=== PATIENT | female | born 1935 | race Caucasian/White ===

== ENCOUNTER 2017-07-16 19:27 | Inpatient (IN) | payer OTHER, SELFPAY ==
[~2017-07-16] VITALS: Ht 157.5 cm; Wt 66.7 kg
--- NOTE | ~2017-07-16 | EKG ---
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
[~2017-07-16 19:27] MED LIST: ADVAIR HFA115 MCG/21 INH; AMARYL2 MG PO; AMBIEN 10 MG TA10 MG PO; AMBIEN 5 MG TABL5 M1 PO; AMLODIPINE BESY10 MG PO; AMOXICILLIN 50500 M1 PO; ASPIRIN325 PO; ASPIRIN81 M2 PO; ATORVASTATIN CA40 MG PO; CARVEDILOL12.5 MG PO; EYE OMEGA ADVA1 EACH PO; FIBERCON625 M1 PO; FLAGYL500 MG PO; GLUCOPHAGE500 MG PO; HYDROCODON-ACE1 EACH PO; IBUPROFEN 800800 M1 PO; IRON325 PO; KLOR-CON 1010 MEQ PO; LASIX 20 MG TAB20 MG PO; LEVAQUIN 500 M500 M2 PO; LEVEMIR SQ; LIPITOR 20 MG T20 M1 PO; LISINOPRIL-HCT1 EAC1 PO; LISINOPRIL10 MG PO; LISINOPRIL20 MG PO; MAG-AL LIQUID30 ML PO; MILK OF MA2400 MG/10 PO; NEXIUM40 MG PO; NITROGLYCERIN0.4 MG SUBLING; OMEPRAZOLE40 MG PO; ONDANSETRON HCL4 M2 PO; PLAVIX 75 MG TA75 M1 PO; PREDNISONE 5 MG5 MG PO; PRILOSEC40 MG PO; PRINIVIL5 MG PO; PROMETHAZINE/C118 ML PO; REMERON15 MG PO; TOPROL XL25 MG PO; TRAMADOL 50 MG50 MG PO; TYLENOL325 MG PO; UNKNOWN ANTIBIOTIC; WOMEN'S GENTLE L5 MG PO; ZOCOR40 MG PO
[2017-07-16 19:28] VITALS: BP 128/53
[2017-07-16 19:50] LABS: ABSOLUTE BASOPHILS 0.1 thou/uL (0.0-0.2); ABSOLUTE EOSINOPHILS 0.6 thou/uL (0.0-0.7); ABSOLUTE LYMPHOCYTES 2.3 thou/uL (0.8-5.3); ABSOLUTE MONOCYTES 0.7 thou/uL (0.0-1.2); BASOPHILS 0.6 %; EOSINOPHILS 6.5 %; HEMATOCRIT 33.7 % (37.0-47.0); HEMOGLOBIN 11.5 gm/dL (12.0-15.0); LYMPHOCYTES 26.1 %; MCV 96.9 fL (80.0-100.0); MONOCYTES 8.6 %; MPV 8.7 fl. (7.2-11.1); NUCLEATED RBCS 0 /100WBC; PLATELET COUNT* 186 thou/uL (150-400); POLYS 58.2 %; RBC 3.48 mil/uL (4.20-5.00); RDW-CV 14.7 % (10.5-14.5); WBC 8.7 thou/uL (4.0-11.0)
[2017-07-16 20:01] LABS: ANION GAP 9 mmol/L (7-16); BUN 26 mg/dL (7-18); CALCIUM 8.6 mg/dL (8.5-10.1); CHLORIDE 106 mmol/L (98-107); CO2 25 mmol/L (21-32); CREATININE 1.5 mg/dL (0.6-1.3); GLUCOSE 205 mg/dL (70-99); POTASSIUM 3.5 mmol/L (3.5-5.1); PROTIME 10.1 Seconds (9.20-11.50); SODIUM 140 mmol/L (136-145)
[2017-07-16 20:12] LABS: ALBUMIN 3.2 g/dL (3.4-5.0); ALKALINE PHOSPHATASE 95 U/L (46-116); NT-PRO BRAIN NAT PEPTIDE 886 pg/mL (<300); SGOT 13 U/L (15-37); SGPT 14 U/L (30-65); TOTAL BILIRUBIN 0.4 mg/dL (<0.1-1.0); TOTAL PROTEIN 6.2 g/dL (6.4-8.2); TROPONIN-I LEVEL <0.06 ng/mL (<0.06)
[2017-07-16] MEDS ORDERED: AREDS 2 PO (20:24)
[2017-07-16] MEDS ORDERED: BIO CLEANSE PO (20:24)
[2017-07-16] MEDS ORDERED: TRAZODONE HCL50 MG PO (20:25)
[2017-07-16] MEDS ORDERED: TRAZODONE HCL50 MG (20:25)
[2017-07-16 21:43] LABS: URINE BILIRUBIN NEGATIVE (Negative); URINE BLOOD NEGATIVE (Negative); URINE CLARITY CLEAR; URINE COLOR YELLOW; URINE GLUCOSE-RANDOM NEGATIVE (Negative); URINE KETONES NEGATIVE (Negative); URINE LEUKOCYTES-REFLEX TRACE (Negative); URINE NITRITE-REFLEX NEGATIVE (Negative); URINE PROTEIN TRACE (Negative); URINE SPECIFIC GRAVITY 1.015 (1.005-1.030); URINE UROBILINOGEN 0.2 E.U./dl (0.2-1.0)
[2017-07-16 21:51] LABS: SQUAMOUS >10 Many /LPF (0-3); URINE WBC-REFLEX 0-5 Rare /HPF (0-5)
[2017-07-16 21:52] LABS: BACTERIA-REFLEX None Seen /HPF (None Seen); CASTS None Seen /LPF (None Seen); CRYSTALS None Seen /LPF (None Seen); URINE RBC None Seen /HPF (0-2)
[2017-07-16 22:40] VITALS: BP 150/62
[2017-07-16 22:57] VITALS: BP 178/62
[2017-07-17 04:00] VITALS: BP 179/69
[2017-07-17 05:09] LABS: HEMATOCRIT 33.7 % (37.0-47.0); HEMOGLOBIN 11.3 gm/dL (12.0-15.0); MCH 32.9 pg (26.0-34.0); MCHC 33.7 g/dL (28.0-37.0); MCV 97.8 fL (80.0-100.0); RBC 3.44 mil/uL (4.20-5.00); RDW-CV 14.7 % (10.5-14.5); WBC 7.2 thou/uL (4.0-11.0)
[2017-07-17 05:38] LABS: CALCIUM 8.4 mg/dL (8.5-10.1); CREATININE 1.4 mg/dL (0.6-1.3); POTASSIUM 3.8 mmol/L (3.5-5.1); TOTAL BILIRUBIN 0.5 mg/dL (<0.1-1.0); TOTAL PROTEIN 5.7 g/dL (6.4-8.2)
[2017-07-17 08:02] LABS: CHOLESTEROL 149 mg/dL (<200); HDL CHOLESTEROL 36 mg/dL (>40); LDL CHOLESTEROL 76 mg/dL (<100); TC:HDL 4.1 Ratio (Not establshd); TRIGLYCERIDE 189 mg/dL (<150); VLDL 38 mg/dL (<40)
[2017-07-17 08:03] LABS: SERUM ASSESSMENT Clear
[2017-07-17 08:22] VITALS: BP 175/76
[2017-07-17 11:58] VITALS: BP 184/69
--- NOTE | 2017-07-17 16:11 | 2DMMODE ---
[place] [address] 2 D/M-MODE ECHOCARDIOGRAM Name: ADELFO LITTLE Room: [address] IN [facility]#: [id number] Admission: 07/16/17 Attend Phys: Napoleon Youssef Discharge: Date of : 33 Date of Service: 07/17/17 1611 Report #: [id number] THIS REPORT FOR: //name// APPROVED REPORT Study performed: 07/17/2017 11:29:17 EXAM: Comprehensive 2D, Doppler, and color-flow Echocardiogram Patient Location: In-Patient Room #: 202 Status: routine BSA: 1.60 HR: 72 bpm BP: 175/76 mmHg Rhythm: NSR Other Information Study Quality: Good Indications Hypotension Near syncope 2D Dimensions LVEF(%): 47.38 (>50%) IVSd: 16.80 (7-11mm) LVOT Diam: 19.44 (18-24mm) LVDd: 41.79 mm PWd: 12.65 (7-11mm) Ascending Ao: 29.22 (22-36mm) LVDs: 31.97 (25-40mm) Aortic Root: 30.71 mm Laboy's LVEF: 47.38 % Volumes Left Atrial Volume (Systole) LA ESV Index: 45.30 mL/m2 Aortic Valve AoV Peak Vignesh.: 1.94 m/s AO Peak Gr.: 15.11 mmHg LVOT Max P.52 mmHg AO Mean Gr.: 8.44 mmHg LVOT Mean P.25 mmHg LVOT Max V: 0.79 m/s AO V2 VTI: 43.57 cm LVOT Mean V: 0.51 m/s BENNETT (VTI): 1.17 cm2 LVOT V1 VTI: 17.19 [place] [address] 2 D/M-MODE ECHOCARDIOGRAM Name: ADELFO LITTLE Room: [address] IN .R.#: [id number] Admission: 07/16/17 Attend Phys: Napoleon Youssef Discharge: Date of : 33 Date of Service: 07/17/17 1611 Report #: [id number] Mean Gr.: 6.45 mmHg E/A Ratio: 1.05 MV Decel. Time: 248.57 ms MV E Max Vignesh.: 1.67 m/s MV PHT: 72.08 ms MVA (PHT): 3.05 cm2 TDI E/Lateral E': 55.67 E/Medial E': 41.75 Medial E' Vignesh.: 0.04 m/s Lateral E' Vginesh.: 0.03 m/s Pulmonary Valve PV Peak Vignesh.: 0.94 m/s PV Peak Gr.: 3.52 mmHg Tricuspid Valve TR Peak Gr.: 31.61 mmHg RVSP: 36.00 mmHg Left Ventricle The left ventricle is normal size. There is mild global hypokinesis. Mild concentric left ventricular hypertrophy. Left ventricular ejection fraction is mildly decreased. LVEF is 45-50%. Transmitral Doppler flow pattern suggests impaired LV relaxation. Right Ventricle The right ventricle is normal size. The right ventricular systolic function is normal. Atria Left atrium is moderately dilated. The right atrium size is normal. Aortic Valve Moderate aortic valve sclerosis. Bioprosthetic aortic valve is present. No aortic regurgitation is present. Moderate aortic stenosis. Mitral Valve Moderate mitral annular calcification. Mild mitral regurgitation. No evidence of mitral valve stenosis. Tricuspid Valve The tricuspid valve is normal in structure. Mild tricuspid regurgitation. The RVSP is 35-40 mmHg. Pulmonic Valve The pulmonary valve is normal in structure. [place] [address] 2 D/M-MODE ECHOCARDIOGRAM Name: EMMETT LITTLERADHA Garcia Room: [address] IN ..#: [id number] Admission: 07/16/17 Attend Phys: aNpoleon Youssef Discharge: Date of : 33 Date of Service: 07/17/17 1611 Report #: [id number] valvular regurgitation. Great Vessels The aortic root is normal in size. IVC is normal in size and collapses with >50% inspiration Pericardium There is no pericardial effusion. <Conclusion> The left ventricle is normal size. Mild concentric left ventricular hypertrophy. Left ventricular ejection fraction is mildly decreased. LVEF is 45-50%. There is mild global hypokinesis. Moderate aortic valve sclerosis. Moderate aortic stenosis. Moderate mitral annular calcification. Mild mitral regurgitation. Mild tricuspid regurgitation. The RVSP is 35-40 mmHg. <ELECTRONICALLY SIGNED> By: Evan Guzman MD, FACC 07/17/17 161 161 10 Evan Guzman MD, FACC /INF
[2017-07-17 16:33] VITALS: BP 181/73
--- NOTE | 2017-07-17 16:35 | EKG ---
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: : 1935 Requested By: Tiffanie Perea Order Number: [id number] MD: Evan Guzman Measurements Intervals [place] Rate: 76 P: 4 [place]: 166 QRS: 1 QRSD: 155 T: 172 QT: 491 QTc: 553 Interpretive Statements Sinus rhythm Left bundle branch block Compared to ECG 03/26/2017 13:07:21 Ventricular premature complex(es) no longer present Electronically Signed On 07-17-2017 16:35:20 ADMINISTRATIVE FELLOW by Evan Guzman [email or web address] <ELECTRONICALLY SIGNED> By: Evan Guzman MD, [facility] 07/17/17 1635 51 51 Evan Guzman MD, [facility] /EPI
[2017-07-17 20:00] VITALS: BP 167/65
[2017-07-18] VITALS: BP 155/54
[2017-07-18 04:00] VITALS: BP 166/66
[2017-07-18 05:17] LABS: HEMATOCRIT 30.9 % (37.0-47.0); HEMOGLOBIN 10.6 gm/dL (12.0-15.0); MCH 33.2 pg (26.0-34.0); MCHC 34.3 g/dL (28.0-37.0); MCV 96.8 fL (80.0-100.0); MPV 9.5 fl. (7.2-11.1); RBC 3.19 mil/uL (4.20-5.00); RDW-CV 14.4 % (10.5-14.5); WBC 7.4 thou/uL (4.0-11.0)
[2017-07-18 05:47] LABS: ALBUMIN 2.6 g/dL (3.4-5.0); CALCIUM 8.3 mg/dL (8.5-10.1); MAGNESIUM 1.8 mg/dL (1.8-2.4); POTASSIUM 3.8 mmol/L (3.5-5.1); TOTAL BILIRUBIN 0.2 mg/dL (<0.1-1.0); TOTAL PROTEIN 5.2 g/dL (6.4-8.2)
[2017-07-18 07:44] VITALS: BP 181/70
[2017-07-18 16:07] VITALS: BP 188/84
[2017-07-18 19:55] VITALS: BP 212/85
[2017-07-19 00:07] VITALS: BP 178/69
[2017-07-19 04:00] VITALS: BP 158/49
[2017-07-19 05:07] LABS: HEMATOCRIT 32.1 % (37.0-47.0); MCH 33.1 pg (26.0-34.0); MCHC 34.2 g/dL (28.0-37.0); MCV 96.9 fL (80.0-100.0); MPV 9.3 fl. (7.2-11.1); RBC 3.31 mil/uL (4.20-5.00); RDW-CV 14.6 % (10.5-14.5); WBC 9.1 thou/uL (4.0-11.0)
[2017-07-19 05:23] LABS: CREATININE 0.9 mg/dL (0.6-1.3); POTASSIUM 3.3 mmol/L (3.5-5.1)
[2017-07-19 07:51] VITALS: BP 166/75
[2017-07-19 11:00] VITALS: BP 166/75
[2017-07-19] MEDS ORDERED: LISINOPRIL10 MG PO (11:25)
[2017-07-19 12:00] VITALS: BP 155/73
[2017-07-19 16:09] VITALS: BP 162/98
--- NOTE | 2017-07-21 15:56 | EEG ---
[address] [address] EEG STUDY REPORT Name: ADELFO LITTLE Radha Room: [address] IN M.R.#: [id number] Admission: 07/16/17 Attend Phys: Jose Alfredo Hdez Discharge: 07/19/17 Date of : 33 Report #: [id number] THIS REPORT FOR: //name// CC: Jack Youssef DATE OF SERVICE: 07/18/2017 This patient is being evaluated for near syncope. EEG was done by placing the electrodes by standard 10-20 system of electrode placement. Both referential and sequential montages were used for recording. Background activity in this patient's EEG is about 8 Hz and 30 microvolt. This patient became drowsy that is associated with bilateral slowing and vertex sharp waves. Photic stimulation was unremarkable. Throughout the record, no active epileptiform activity was noticed. IMPRESSION: Moderately abnormal electroencephalogram because it is intermixed with theta range slowing on both sides. That is a nonspecific abnormality, which can occur with encephalopathy, effect of psychotropic medication, dementia, or drowsiness. No active epileptiform activity was noticed during this record. Thank you very much for this referral. <ELECTRONICALLY SIGNED> By: Arik Siddiqi MD 07/21/17 1556 1731 1738Arik Siddiqi MD /nt
--- NOTE | 2017-07-28 14:18 | CON ---
[address] [address] CONSULTATION Name: ADELFO LITTLE Room: [address] IN M.R.#: [id number] Admission: 07/16/17 Attend Phys: Jose Alfredo Hdez Discharge: 07/19/17 Date of : 33 Report #: [id number] THIS REPORT FOR: //name// CC: Jack Youssef DICTATED BY: Stephanie TIJERINA DATE OF SERVICE: 07/18/2017 This is Stephanie Minor [facility], dictating in collaboration with Dr. Sascha Maguire. REASON FOR CONSULTATION: Carotid artery stenosis, presyncopal event. HISTORY OF PRESENT ILLNESS: The patient is an 82-year-old female, who is well known to our practice with a history of a right internal carotid artery occlusion with stenosis on the left. She was seen by our service in March 2016, a CTA neck was obtained, which confirmed her right ICA occlusion, suggested approximately 60% stenosis on the left. She was again seen in consultation in March 2017 after a syncopal episode. MRI of her brain showed a small infarct in the right occipital lobe at that time. She was continued on Plavix, aspirin and statin therapies with recommendation for a followup carotid duplex in 6 months. On the day of this admission, she was eating dinner with her son. She had a presyncopal episode, did vomit once. An MRI of the brain showed her old infarct with atrophy and extensive white matter abnormalities in the right frontoparietal region, no acute infarcts identified. A carotid duplex was again obtained, which again demonstrates the occlusion of the right internal carotid artery, 60-70% stenosis on the left with a peak systolic velocity of 170 cm/sec. We have been asked to evaluate the patient and give our opinion regarding these findings. The patient currently denies any nausea, vomiting, fevers, chills, chest pain, shortness of breath. She denies any new CVA or TIA-type symptoms. She does report some mild chronic left-sided weakness from her previous strokes. She does not utilize a walker or a cane with ambulation, states she goes out of the house very rarely. She holds on to the chávez and banister and such while she ambulates in her house. PAST MEDICAL HISTORY: 1. Carotid artery stenosis. 2. History of cerebrovascular accident. 3. Hyperlipidemia. 4. Coronary artery disease. 5. Aortic stenosis. 6. Peptic ulcer disease. 7. Degenerative joint disease. 8. History [place] congest[place] [address] CONSULTATION Name: ADELFO LITTLE Radha Room: [address] IN ..#: [id number] Admission: 07/16/17 Attend Phys: Jose Alfredo Hdez Discharge: 07/19/17 Date of : 33 Report #: [id number] 9. Sarcoidosis. 10. Diabetes mellitus, diet controlled. PAST SURGICAL HISTORY: 1. Bowel resection in 1999. 2. Back surgery. 3. Cholecystectomy. 4. Rectal surgery. 5. Bilateral knee replacements. 6. Coronary artery bypass grafting x 2 with an aortic valve replacement. ALLERGIES: No known drug allergies. HOME MEDICATIONS: 1. Prinivil 5 mg twice daily. 2. Lipitor 40 mg daily. 3. Aspirin 81 mg daily. 4. Coreg 12.5 mg twice daily. 5. Omeprazole 1 capsule daily. 6. Desyrel 50 mg. 7. Nitrostat 0.4 mg sublingually as needed for chest pain. 8. Plavix 75 mg daily. FAMILY HISTORY: Reviewed, noncontributory due to her advanced age. SOCIAL HISTORY: She is a daily smoker, reports weekly alcohol use, denies any illicit drug use. She just spent the last 3 months living with her daughter. She reports that she is going to move to [place], [place] on Sunday to live with her other daughter. REVIEW OF SYSTEMS: A 12-point review of systems has been reviewed and is negative except for the above mentioned in the history of present illness. PHYSICAL EXAMINATION: VITAL SIGNS: Temperature 36.8, heart rate 71, blood pressure 181/70, respiratory rate is 18, oxygen saturation is 97% on room air. GENERAL: Alert and oriented and in no acute distress. HEENT: Head is normocephalic, atraumatic. She does wear glasses. NECK: Supple with bilateral carotid bruits. HEART: Regular rate and rhythm. ABDOMEN: Soft, nontender, positive bowel sounds. EXTREMITIES: She has palpable bilateral radial, femoral and pedal pulses. NEUROLOGIC: She is alert and oriented with a slight left-sided weakness. LABORATORY DATA: Hemoglobin 10.6, hematocrit 30.9, white blood cell count 7.4, platelets 158. Sodium 143, potassium 3.8, chloride 110, CO2 of 24, BUN 17, [place] [address] CONSULTATION Name: ADELFO LITTLE: 202-P DIS IN M.R.#: [id number] Admission: 07/16/17 Attend Phys: Jose Alfredo Hdez Discharge: 07/19/17 Date of : 33 Report #: [id number] creatinine 1.0, glucose is 158. ASSESSMENT AND PLAN: 1. Carotid artery stenosis with approximately 60% stenosis in the left internal carotid artery with a known right internal carotid artery occlusion. She has no new infarct identified on MRI of the brain. No surgical intervention is currently recommended from a vascular surgery standpoint. Recommend continuing aspirin, Plavix and statin therapies for stroke risk reduction. From our standpoint, she is okay to proceed with her move to [place] with her daughter. Would recommend establishing care with a vascular surgeon up there for a followup carotid duplex in 6 months. 2. Near syncope. She was hypotensive on admission. Management per primary. We thank you for the opportunity to participate in the care of the patient. Please feel free to contact our office with any questions or concerns. <ELECTRONICALLY SIGNED> By: Sascha Maguire DO 07/28/17 1418 1247 [id number] Maguire DO /nt
== END 2017-07-19 16:30 | disposition home or self-care (01) | DRG 314 ==
LOC: M.ERS 19:27 → M.TBA-ER 21:55 → M.2W 21:55
PROVIDERS: Emergency Medicine; Internal Medicine; ADMIT Internal Medicine
DX: I95.9 Hypotension, unspecified (principal); N17.0 Acute kidney failure with tubular necrosis; I69.354 Hemiplegia and hemiparesis following cerebral infarction affecting left non-dominant side; I50.9 Heart failure, unspecified; Z96.653 Presence of artificial knee joint, bilateral; E78.5 Hyperlipidemia, unspecified; I25.10 Atherosclerotic heart disease of native coronary artery without angina pectoris; F17.210 Nicotine dependence, cigarettes, uncomplicated; N18.9 Chronic kidney disease, unspecified; E11.22 Type 2 diabetes mellitus with diabetic chronic kidney disease; I65.23 Occlusion and stenosis of bilateral carotid arteries; E86.0 Dehydration; Z90.710 Acquired absence of both cervix and uterus; Z90.49 Acquired absence of other specified parts of digestive tract; Z95.2 Presence of prosthetic heart valve; Z87.11 Personal history of peptic ulcer disease; Z79.899 Other long term (current) drug therapy; Z95.1 Presence of aortocoronary bypass graft